=== PATIENT | female | born 1945 | race African-American/Black ===

== ENCOUNTER 2021-08-12 03:39 | Inpatient (IN) | payer MEDICARE ==
[~2021-08-12] VITALS: Ht 170.2 cm; Wt 93.0 kg
[2021-08-12] MEDS ORDERED: ONDANSETRON HCL 4MG/2ML INJ IV STA (04:06)
[2021-08-12] MEDS ORDERED: LABETALOL 5MG/ML SYR 20 MG/4 ML SYRINGE IV ONE (04:15)
[2021-08-12 04:18] LABS: BASOPHILS % 0.9 % (0.0-2.0); EOSINOPHILS % 1.2 % (0.0-5.0); HEMATOCRIT. 39.3 % (36.0-48.0); LYMPHOCYTES % 21.7 % (20.0-50.0); MEAN CORPUSCULAR HEMOGLOBIN 29.5 pg (28.0-32.0); MEAN CORPUSCULAR VOLUME 89.6 fL (81.0-99.0); MEAN PLATELET VOLUME 9.8 fl (7.4-10.4); MONOCYTES % 4.4 % (2.0-8.0); NEUTROPHILS % 71.8 % (40.0-76.0); PLATELET 166 x1000/uL (130-400); RED BLOOD CELL COUNT 4.39 mill/uL (4.2-5.4); RED CELL DISTRIBUTION WIDTH 13.9 % (11.6-14.6)
[2021-08-12 04:23] LABS: CHLORIDE 107 mEq/L (98-107)
[2021-08-12] MEDS ORDERED: ASPIRIN 81MG TABLET PO NR (08:15)
[2021-08-12] MEDS ORDERED: ACETAMINOPHEN 325MG TABLET PO PRN (08:15)
[2021-08-12] MEDS ORDERED: CLONIDINE 0.1MG TABLET PO PRN (08:15)
[2021-08-12] MEDS ORDERED: DOCUSATE SODIUM 100MG CAPSULE PO PRN (08:15)
[2021-08-12 09:43] LABS: VITAMIN B12 SERUM > 2000.0 pg/mL (211-911)
[2021-08-12] MEDS: ENOXAPARIN 40MG/0.4ML SYR SUBCUT SCH (09:49)
[2021-08-12] MEDS: LISINOPRIL 40MG TABLET PO SCH (10:01)
[2021-08-12] MEDS: ONDANSETRON HCL 4MG/2ML INJ IV PRN ×2 (10:01→22:12)
[2021-08-12 14:53] LABS: CLARITY URINE CLEAR (CLEAR); COLOR URINE YELLOW (YELLOW); KETONES URINE NEGATIVE (NEGATIVE); LEUKOCYTE ESTERASE URINE NEGATIVE (NEGATIVE); NITRITE URINE NEGATIVE (NEGATIVE); OCCULT BLOOD URINE NEGATIVE (NEGATIVE); PROTEIN URINE TRACE (NEGATIVE); SPECIFIC GRAVITY URINE 1.022 (1.005-1.030); UROBILINOGEN URINE 0.2 E.U./dL (0.2-1.0)
[2021-08-12] MEDS ORDERED: POTASSIUM CHLORIDE 20MEQ TABLET SR PO ONE (16:15)
[2021-08-12 16:45] VITALS: BP 140/69
[2021-08-12 17:00] VITALS: BP 140/69
[2021-08-12] MEDS ORDERED: HYDR-4135 PO (18:14)
[2021-08-12] MEDS: ATORVASTATIN CALCIUM 40MG TABLET PO SCH (21:00)
[2021-08-12 22:34] VITALS: BP 143/62
[2021-08-13] VITALS: BP 148/63
[2021-08-13] MEDS: ONDANSETRON HCL 4MG/2ML INJ IV PRN ×2 (04:06→15:28)
[2021-08-13 08:00] VITALS: BP 146/64
[2021-08-13] MEDS: ENOXAPARIN 40MG/0.4ML SYR SUBCUT SCH (10:05)
[2021-08-13] MEDS: LISINOPRIL 40MG TABLET PO SCH (10:05)
[2021-08-13] MEDS: MECLIZINE 25MG TABLET PO PRN ×2 (10:29→21:13)
[2021-08-13 11:32] VITALS: BP 140/62
[2021-08-13 12:00] VITALS: BP_SYST 89; BP_SYST 96; BP_DIAS 43; BP_DIAS 45
[2021-08-13 16:00] VITALS: BP_SYST 159; BP_SYST 178; BP_DIAS 73; BP_DIAS 78
[2021-08-13 20:00] VITALS: BP 149/69
[2021-08-13] MEDS: ATORVASTATIN CALCIUM 40MG TABLET PO SCH (21:13)
[2021-08-14] VITALS: BP 136/65
[2021-08-14 04:00] VITALS: BP 127/66
[2021-08-14 08:00] VITALS: BP_SYST 113; BP_SYST 157; BP_SYST 164; BP_DIAS 42; BP_DIAS 60; BP_DIAS 69
[2021-08-14] MEDS: LISINOPRIL 40MG TABLET PO SCH ×2 (09:00→11:20)
[2021-08-14] MEDS: ENOXAPARIN 40MG/0.4ML SYR SUBCUT SCH (09:18)
[2021-08-14] MEDS ORDERED: MECL-159 MT (10:02)
[2021-08-14 10:58] VITALS: BP 157/60
[2021-08-14] MEDS: MECLIZINE 25MG TABLET PO PRN (11:19)
== END 2021-08-14 11:50 | disposition home or self-care (01) | DRG 74 ==
LOC: ER 03:39 → 6WST 06:28 → ENRESERV 15:44
PROVIDERS: ADMIT Internal Medicine Pulmonary Disease; ATTEND Internal Medicine Pulmonary Disease
PROC: 4A00X4Z Measurement of Central Nervous Electrical Activity, External Approach (ICD-10-PCS; principal; 2021-08-13)
DX: G90.8 Other disorders of autonomic nervous system (principal); E87.6 Hypokalemia; I10 Essential (primary) hypertension; Z20.822 Contact with and (suspected) exposure to COVID-19; E66.9 Obesity, unspecified; Z68.32 Body mass index [BMI] 32.0-32.9, adult; Z86.73 Personal history of transient ischemic attack (TIA), and cerebral infarction without residual deficits
CPT/HCPCS: 36415; 70551; 71045; 80053; 81003; 82607; 82746; 84443; 84484; 85025; 87426; 93005; 95816; 97112; 97162; 97166; 99291; C9803; J1650; J2405; J3490; J8597